=== PATIENT | male | born 1975 | race Caucasian/White ===

== ENCOUNTER → 2016-12-03 | Outpatient (CLI) | payer MEDICARE, MEDICAID ==
--- NOTE | 2016-12-03 18:19 | REP ---
CT FOOT WITHOUT CONTRAST: REASON FOR EXAM: Right foot pain. Assess for distal metatarsal fracture. Low dose [address] scanning of the right foot was obtained using 2 mm increments. There are no prior CT's for comparison. The examination was windowed using both bone and soft-tissue settings. Coronal and sagittal reconstructions were also performed. The joint spaces are symmetric and well maintained. There is no evidence of an acute fracture or destructive osseous lesion. The degree of mineralization appears appropriate. In the plantar soft-tissue at the ball of the foot two tiny 3 and 4 mm sized curvilinear densities are seen in the deep subcutanea. IMPRESSION: 1. There is no evidence of a fracture or osseous abnormality as described above. 2. Small soft-tissue radiodensity of uncertain etiology, whether these represent tiny soft-tissue calcifications or small soft-tissue foreign bodies, needs to be clinically evaluated. Signed by Ramos Mendoza DO 12/04/2016 11:15 A
== END ==
LOC: M RAD 15:39
PROVIDERS: ATTEND Student in an Organized Health Care Education/Training Program
DX: M79.671 Pain in right foot (principal); R93.7 Abnormal findings on diagnostic imaging of other parts of musculoskeletal system

== ENCOUNTER → 2017-05-18 | Outpatient (REF) | payer MEDICARE, MEDICAID ==
[2017-05-18 12:07] LABS: BASO % 0.6 % (0.0-1.0); EOS # 0.1 K/mm3 (0.0-0.50); EOS % 1.1 % (0.0-3.0); LARGE UNSTAINED CELL # 0.1 K/mm3 (0.0-0.4); LARGE UNSTAINED CELL % 1.9 % (0.0-4.0); LYMPH # 1.1 K/mm3 (1.5-4.5); LYMPH % 15.1 % (24.0-44.0); MEAN CORPUSCULAR HGB CONC 31.9 g/dl (32.0-36.5); MEAN CORPUSCULAR VOLUME 87.7 fl (80.0-96.0); MONO # 0.5 K/mm3 (0.0-0.8); MONO % 6.8 % (0.0-5.0); NEUTROPHILS % 74.5 % (36.0-66.0); PLATELET COUNT, AUTOMATED 229 k/mm3 (150-450); RED CELL DISTRIBUTION WIDTH 15.3 % (11.5-14.5); WHITE BLOOD COUNT 6.7 K/mm3 (4.0-10.0)
[2017-05-18 12:43] LABS: ALBUMIN 3.5 GM/DL (3.2-5.2); ALBUMIN/GLOBULIN RATIO 0.92 (1.00-1.93); ALKALINE PHOSPHATASE 223 U/L (45-117); ALT/SGPT 103 U/L (12-78); ANION GAP 12 MEQ/L (8-16); AST/SGOT 178 U/L (15-37); BILIRUBIN,TOTAL 0.9 MG/DL (0.2-1.0); BLOOD UREA NITROGEN 3 MG/DL (7-18); CALCIUM LEVEL 8.2 MG/DL (8.5-10.1); CARBON DIOXIDE LEVEL 25 MEQ/L (21-32); CHLORIDE LEVEL 105 MEQ/L (98-107); CREATININE FOR GFR 0.54 MG/DL (0.70-1.30); FREE T4 1.24 NG/DL (0.76-1.46); GLOMERULAR FILTRATION RATE > 60.0 (>60); GLUCOSE, FASTING 101 MG/DL (70-105); MAGNESIUM LEVEL 2.4 MG/DL (1.8-2.4); PHOSPHORUS LEVEL 4.2 MG/DL (2.5-4.9); POTASSIUM SERUM 4.1 MEQ/L (3.5-5.1); SODIUM LEVEL 142 MEQ/L (136-145); TOTAL PROTEIN 7.3 GM/DL (6.4-8.2)
[2017-05-20 00:06] LABS: Lyme Disease IgG/IgM Antibodie <0.91 ISR (0.00-0.90); Lyme Disease IgM Ab Quantitati <0.80 index (0.00-0.79)
== END ==
LOC: M SFHCPLAZ 09:58
PROVIDERS: ATTEND Family Medicine
DX: F20.1 Disorganized schizophrenia (principal); I10 Essential (primary) hypertension

== ENCOUNTER → 2018-05-24 | Outpatient (REF) | payer MEDICARE, MEDICAID ==
[2018-05-24 18:09] LABS: BASO # 0.1 10^3/uL (0.0-0.2); BASO % 0.7 % (0.0-1.0); EOS # 0.1 10^3/uL (0.0-0.50); EOS % 1.1 % (0.0-3.0); HEMATOCRIT 39.8 % (42.0-52.0); HEMOGLOBIN 13.3 g/dl (13.5-17.5); IMMATURE GRANULOCYTE % 0.2 % (0-3.0); LYMPH # 1.2 10^3/uL (1.5-4.5); LYMPH % 14.8 % (24.0-44.0); MEAN CORPUSCULAR HGB CONC 33.4 g/dl (32.0-36.5); MEAN CORPUSCULAR VOLUME 89.6 fl (80.0-96.0); MONO # 0.8 10^3/uL (0.0-0.8); MONO % 9.5 % (0.0-5.0); NEUTROPHILS # 6.1 10^3/uL (1.8-7.7); NEUTROPHILS % 73.7 % (36.0-66.0); PLATELET COUNT, AUTOMATED 215 10^3/uL (150-450); RED BLOOD COUNT 4.44 10^6/uL (4.30-6.10); RED CELL DISTRIBUTION WIDTH 16.2 % (11.5-14.5); RETIC HEMOGLOBIN EQUIVALENT 36.7 pg (24-36); RETICULOCYTE # 81.7 10^9/L (17-77); RETICULOCYTE % 1.8 % (0.5-1.5); WHITE BLOOD COUNT 8.3 10^3/uL (4.0-10.0)
[2018-05-24 18:34] LABS: ALBUMIN 3.3 GM/DL (3.2-5.2); ALBUMIN/GLOBULIN RATIO 0.77 (1.00-1.93); ALKALINE PHOSPHATASE 252 U/L (45-117); ALT/SGPT 102 U/L (12-78); ANION GAP 10 MEQ/L (8-16); AST/SGOT 191 U/L (7-37); BILIRUBIN,TOTAL 1.6 MG/DL (0.2-1.0); BLOOD UREA NITROGEN 2 MG/DL (7-18); C REACTIVE PROTEIN QUANTITATIV 0.89 MG/DL (0.00-0.30); CALCIUM LEVEL 8.8 MG/DL (8.5-10.1); CARBON DIOXIDE LEVEL 28 MEQ/L (21-32); CHLORIDE LEVEL 99 MEQ/L (98-107); CHOLESTEROL LEVEL 227 MG/DL (<200); CHOLESTEROL RISK RATIO 3.661 (<5); CREATININE FOR GFR 0.59 MG/DL (0.70-1.30); FERRITIN 66 NG/ML (26-388); GLOMERULAR FILTRATION RATE > 60.0 (>60); GLUCOSE, FASTING 95 MG/DL (70-100); HDL CHOLESTEROL 62 MG/DL (>40); IRON (FE) 35 UG/DL (65-175); LDL CHOLESTEROL 145.4 MG/DL (<100); NON-HDL-C 165 MG/DL; PERCENT SATURATION 10.2 % (19.7-50.0); POTASSIUM SERUM 3.8 MEQ/L (3.5-5.1); RHEUMATOID FACTOR QUANT < 10.0 IU/ML (<15.0); SODIUM LEVEL 137 MEQ/L (136-145); TOTAL IRON BINDING CAPACITY 342 UG/DL (250-450); TOTAL PROTEIN 7.6 GM/DL (6.4-8.2); TRIGLYCERIDES LEVEL 98 MG/DL (<150)
[2018-05-24 19:00] LABS: ERYTHROCYTE SEDIMENTATION RATE 18 mm/hr (0-15)
[2018-05-25 10:49] LABS: FOLATE 4.2 NG/ML (>5.4); VITAMIN B12 LEVEL 838 PG/ML (247-911)
[2018-05-26 09:15] LABS: HEPATITIS B SURFACE ANTIGEN NEGATIVE (NEGATIVE)
[2018-05-26 09:35] LABS: HEPATITIS B CORE ANTIBODY IGM NEGATIVE (NEGATIVE); HEPATITIS C VIRUS ABY INDEX 0.1 INDEX (<0.8)
[2018-05-26 09:37] LABS: HEPATITIS A ANTIBODY IGM NEGATIVE (NEGATIVE)
[2018-05-27 00:06] LABS: ANTINUCLEAR ANTIBODIES DIRECT Negative (Negative); Lyme Disease IgG/IgM Antibodie <0.91 ISR (0.00-0.90); Lyme Disease IgM Ab Quantitati <0.80 index (0.00-0.79); TRANSFERRIN 264 mg/dL (200-370)
[2018-05-27 00:06] LABS: CYCLIC CITRULLINATED PEPTIDE 9 units (0-19)
== END ==
LOC: M SFHCPLAZ 16:12
DX: M25.541 Pain in joints of right hand (principal); R74.8 Abnormal levels of other serum enzymes; Z13.220 Encounter for screening for lipoid disorders; D64.9 Anemia, unspecified; F10.10 Alcohol abuse, uncomplicated
CPT/HCPCS: 82746

== ENCOUNTER 2018-10-12 17:06 | Inpatient (IN) | payer MEDICARE, MEDICAID ==
[2018-10-12] VITALS (27 sets, daily range): BP systolic 84–150; BP diastolic 37–100
[~2018-10-12] VITALS: Ht 170.2 cm; Wt 123.6 kg
[2018-10-12] MEDS ORDERED: EPINEPHrine 1MG/10ML SYRINGE 1.5IN IV STA ×7 (17:15→17:53)
[2018-10-12] MEDS ORDERED: SUCCINYLCHOLINE INJ 200 MG/10 ML VIAL (J0330) IV STA (17:23)
[2018-10-12] MEDS ORDERED: SODIUM CHLORIDE 0.9% 1000ML IV ONE (17:28)
[2018-10-12] MEDS ORDERED: OCTREOTIDE ACETATE 100 MCG/ML VIAL (J2354) SC STA (17:44)
[2018-10-12] MEDS ORDERED: NS 1,000 ML IV ONE ×3 (17:45→21:30)
[2018-10-12] MEDS ORDERED: OCTREOTIDE ACETATE 1,200 MCG in NS 238.8 ML IV SCH ×2 (17:45→18:00)
[2018-10-12 18:13] LABS: HEMATOCRIT 22.1 % (42.0-52.0); MEAN CORPUSCULAR HEMOGLOBIN 28.3 pg (27.0-33.0); MEAN CORPUSCULAR HGB CONC 29.4 g/dl (32.0-36.5); MEAN CORPUSCULAR VOLUME 96.1 fl (80.0-96.0); PLATELET COUNT, AUTOMATED 183 10^3/uL (150-450); WHITE BLOOD COUNT 15.3 10^3/uL (4.0-10.0)
[2018-10-12 18:16] LABS: HEMOGLOBIN 6.5 g/dl (13.5-17.5)
[2018-10-12 18:26] LABS: INR 3.26
[2018-10-12 18:29] LABS: PARTIAL THROMBOPLASTIN TIME 82.3 SECONDS (25.4-37.6)
[2018-10-12 18:39] LABS: LYMPHOCYTES 13 % (16-52); METAMYELOCYTES 6 % (0-0); MONOCYTES 6 % (0-8); NEUTROPHILS 64 % (35-75); PLATELET ESTIMATE NORMAL (NORMAL)
[2018-10-12 18:40] LABS: HYPOCHROMASIA 2+; TOXIC GRANULATION 1+
[2018-10-12 18:41] LABS: POLYCHROMASIA 2+
[2018-10-12 18:46] LABS: ALBUMIN 1.5 GM/DL (3.2-5.2); ALT/SGPT 213 U/L (12-78); AMYLASE 59 U/L (25-115); BILIRUBIN,DIRECT 1.5 MG/DL (0.0-0.2); BILIRUBIN,TOTAL 2.1 MG/DL (0.2-1.0); BLOOD UREA NITROGEN 8 MG/DL (7-18); CALCIUM LEVEL 6.9 MG/DL (8.5-10.1); CARBON DIOXIDE LEVEL 10 MEQ/L (21-32); CHLORIDE LEVEL 91 MEQ/L (98-107); CPK CREATINE PHOSPHOKINASE 319 U/L (39-308); CREATININE FOR GFR 1.37 MG/DL (0.70-1.30); GLOMERULAR FILTRATION RATE > 60.0 (>60); GLUCOSE, FASTING 63 MG/DL (70-100); LIPASE 593 U/L (73-393); MB/CK RELATIVE INDEX 1.38 (< OR =4); POTASSIUM SERUM 6.8 MEQ/L (3.5-5.1); SODIUM LEVEL 124 MEQ/L (136-145); TOTAL PROTEIN 4.1 GM/DL (6.4-8.2); TROPONIN I 0.04 NG/ML (< 0.10)
--- NOTE | 2018-10-12 18:48 | REP ---
Chest one-view HISTORY: Tube placement Comparison: 12/30/2013 The lungs are clear. The heart is normal in size. The pulmonary vasculature is normal in appearance. An ET tube NG tube and central line are present. An ET tube is present just proximal to the genevieve. An NG tube is present in the region of the mid esophagus. Impression: 1. No acute disease. 2. An ET tube is present just proximal to the genevieve. 3. An NG tube is present in the region of the mid esophagus. Electronically Signed by Ba Win MD 10/12/2018 06:40 P
[2018-10-12] MEDS ORDERED: PROPOFOL 1,000 MG/100 ML VIAL As Ordered ONE (19:08)
[2018-10-12] MEDS ORDERED: PROPOFOL 1,000 MG in APPROPRIATE DILUENT 1 EA IV SCH (19:18)
[2018-10-12] MEDS ORDERED: CALCIUM GLUCONATE 1,000 MG in D5W MINI-BAG PLUS 100 ML IV ONE (19:30)
[2018-10-12] MEDS ORDERED: PANTOPRAZOLE SODIUM 40 MG in D5W 50 ML IV SCH (19:30)
[2018-10-12] MEDS ORDERED: cefTRIAXone SOD 1 GM in D5W MINI-BAG PLUS 50 ML IV ONE (19:30)
[2018-10-12] MEDS ORDERED: MORPHINE 4 MG/ML 1ML VIAL/SYRINGE (J2270) IV PRN (19:30)
[2018-10-12 19:56] LABS: SPEC. GRAVITY BODY FLUIDS 1.011 (NOT ESTABLISHED)
[2018-10-12 19:59] LABS: ABG BASE EXCESS -25.3 (-2.0-2.0); ABG HCO3 7.6 MEQ/L (22.0-26.0); ABG O2 SATURATION 93.7 % (95.0-99.0); ABG PARTIAL PRESSURE CO2 41.8 mmHg (35.0-45.0); ABG PARTIAL PRESSURE O2 97.6 mmHg (75.0-100.0); ABG STANDARD HCO3 6.8 MEQ/L (22.0-26.0); ABG TOTAL CO2 8.8 MEQ/L (22.0-29.0)
[2018-10-12] MEDS ORDERED: IPRATROPIUM 0.5MG/ALBUTEROL 2.5MG INH SOL UD 3ML (DUONEB)(J7620) NEB SCH (20:00)
[2018-10-12 20:02] LABS: HEMATOCRIT 36.2 % (42.0-52.0)
[2018-10-12 20:03] LABS: ABG pH (ARTERIAL) 6.875 UNITS (7.350-7.450)
[2018-10-12 20:06] LABS: HEMOGLOBIN 11.1 g/dl (13.5-17.5)
[2018-10-12] MEDS ORDERED: SODIUM BICARBONATE 8.4% INJ 50 ML SYRINGE IV STA ×2 (20:07→21:43)
[2018-10-12 20:08] LABS: APPEARANCE, BODY FLUID CLEAR (CLEAR); PERITONEAL FL COLOR YELLOW (COLORLESS); SOURCE, BODY FLUID PERITONEAL
[2018-10-12] MEDS ORDERED: SODIUM BICARBONATE 8.4% INJ 50 ML SYRINGE As Ordered ONE (20:08)
[2018-10-12 20:12] LABS: SOURCE, BODY FLUID GLUCOSE PERITONEAL; SOURCE, BODY FLUID TOT PROTEIN PERITONEAL
[2018-10-12 20:29] LABS: ALBUMIN 1.9 GM/DL (3.2-5.2); ALT/SGPT 407 U/L (12-78); BILIRUBIN,TOTAL 2.6 MG/DL (0.2-1.0); BLOOD UREA NITROGEN 9 MG/DL (7-18); CARBON DIOXIDE LEVEL 11 MEQ/L (21-32); CHLORIDE LEVEL 89 MEQ/L (98-107); CHOLESTEROL LEVEL 115 MG/DL (< 200); CPK CREATINE PHOSPHOKINASE 537 U/L (39-308); CREATININE FOR GFR 1.37 MG/DL (0.70-1.30); GLOMERULAR FILTRATION RATE > 60.0 (>60); GLUCOSE, FASTING 81 MG/DL (70-100); LDH LACTATE DEHYDROGENASE 2015 U/L (87-241); PHOSPHORUS LEVEL 8.8 MG/DL (2.5-4.9); POTASSIUM SERUM 7.8 MEQ/L (3.5-5.1); SODIUM LEVEL 120 MEQ/L (136-145); TRIGLYCERIDES LEVEL 154 MG/DL (<150)
[2018-10-12] MEDS ORDERED: HumuLIN R (REGULAR) INSULIN (NovoLIN R) **100U/ML** PER UNIT As Ordered ONE (20:31)
[2018-10-12] MEDS ORDERED: DEXTROSE 50% 50 ML SYRINGE As Ordered ONE (20:31)
[2018-10-12] MEDS ORDERED: DEXTROSE 50% 50 ML SYRINGE IV STA (20:34)
[2018-10-12] MEDS ORDERED: HumuLIN R (REGULAR) INSULIN (NovoLIN R) **100U/ML** PER UNIT IV STA (20:36)
--- NOTE | 2018-10-12 20:40 | HPE ---
DATE OF ADMISSION: 10/12/2018 Critical care time was 2 hours. This excludes all procedures. Mr. Santos is a 43-year-old male whom I was called emergently to the emergency room to help at bedside. Apparently, he presented with variceal bleeding. He was intubated. Continued to have variceal bleeding. On my arrival, his abdomen was significantly distended. I placed a central line. He already had two large- bore intravenous (IVs), and I performed a bedside paracentesis in order to decompress the abdomen and showed clear yellow fluid. I drained a liter off at a time, monitoring his blood pressure over a 45-minute period, and drained a total of 5300 mL. His bleeding seemed to decrease. He was transferred up to the intensive care unit (ICU) to facilitate upper endoscopy. He had received as part of my bedside management along with the emergency room (ER) bedside management 6 units packed red blood cells, 2 units of fresh frozen plasma (FFP). He was getting rapid transfusion protocol. Platelets were not available at that point in time. Apparently, according to the mother, who states she is his healthcare proxy, he has severe schizophrenia with both visual and auditory hallucinations. He therefore drinks on a daily basis along with taking antipsychotic medications; therefore, the thought is that there is cirrhosis secondary to alcoholic liver disease; however, the patient never had a biopsy. He was being urged by his primary care physician to see a gastrointestinal (GI) physician; however he never went for an appointment. His mother would clean the bathroom and know that he had been vomiting and having diarrhea, feeling as if there might have been blood in the vomit or stool. No other medical history is available other than what is obtained in the chart. PAST MEDICAL HISTORY: 1. Reflux. 2. Hypertension. 3. Schizophrenia. 4. Schizoaffective disorder. 5. Obsessive-compulsive disorder (OCD). 6. Posttraumatic stress disorder (PTSD). 7. Hypertension. 8. Insomnia. 9. Hyperlipidemia. 10. Tobacco abuse. 11. Alcohol abuse. 12. Inguinal hernia repair. ALLERGIES: No drug allergies. The medication list I have from June shows: - multivitamin - vitamin B complex - Ambien - Cogentin - Celexa at 60 mg daily - potassium 75 mg by mouth daily - Ritalin 20 mg by mouth daily - EpiPen as needed for bee stings - omeprazole 40 mg daily - Haldol 5 mg by mouth daily - Abilify 20 mg by mouth daily - hydroxyzine 25 mg by mouth daily - doxepin 10 mg by mouth daily - Rozerem 8 mg by mouth daily - fluticasone nasal spray - Claritin as needed SOCIAL HISTORY: Unobtainable. FAMILY HISTORY: Unobtainable. REVIEW OF SYSTEMS: Unobtainable. PHYSICAL EXAMINATION: The patient is sedated on mechanical ventilation on my arrival to the room. He is covered in a blood clots. Bed is covered in blood, and floor is covered in blood clots. Endotracheal tube is present. Temperature is 97.6, blood pressure 113/56, pulse is 97, oxygen saturation 93% on 100% FiO2, positive end-expiratory pressure (PEEP) of 12 with a respiratory rate is 20. GENERAL, the patient is sedated on mechanical ventilation. Prior to sedation but after intubation with rapid sequence, the patient's pupils were dilated but reactive to light, approximate measurement of 6-7 mm. They were symmetric. Nares bilaterally full blood. Nasogastric (NG) tube in one naris. Mouth, again, full of blood. Tongue is midline. No evidence of trauma to the tongue. Teeth in good repair. Endotracheal tube filled with blood. Neck supple. No tracheal deviation or mass. Right internal jugular (IJ) in place without surrounding erythema or exudate. Lymph: No cervical, supraclavicular, or axillary adenopathy. CARDIAC: Distant S1, S2 without audible murmur, rub, or gallop. Difficult to palpate point of maximal impulse (PMI) based on body habitus. PULMONARY: Decreased breath sounds at the bases. No rales, rhonchi, or wheezes. No accessory muscle use. The patient is generating his own efforts as far as breathing. ABDOMEN: Significantly distended, dull to percussion, the majority of the flank. Hypoactive bowel sounds. Hepatomegaly was not palpable due to the severity of the distension of the abdomen. EXTREMITIES: Significant edema, pitting to the level of the thigh. No cyanosis. No clubbing. Minimal jaundice. Multiple tattoos. MUSCULOSKELETAL: No joint effusion, rash. LABORATORY EVALUATION: Shows an elevated white count of 15.3, hemoglobin of 16.5, hematocrit of 22.1, platelet count of 183. Total bilirubin of 2.1, direct bilirubin of 1.5, AST of 849, ALT of 213, CK of 319, albumin of 1.5. Sodium is 124, potassium 6.8, chloride of 91, bicarbonate 10, BUN of 8, creatinine of 1.37. Chest x-ray shows that the endotracheal tube is slightly deep. Poor chest expansion with cardiomegaly, even though this is an anterior-posterior (AP) film. No other imaging has been performed other than my bedside ultrasound imaging. There is extensive amount of ascites on bedside ultrasound. IMPRESSION: 1. Variceal bleed with hematemesis. The patient had pulseless electrical activity (PEA) arrest from the severity of the bleeding. Will continue to support the patient rapid transfusion protocol. Gastrointestinal (GI) has been consulted for banding of varices now that the patient has maintained a blood pressure and pulse. He has been started on an octreotide drip, Protonix drip, and I placed him on ceftriaxone, especially after the peritoneal drainage. 2. Severe anemia secondary to #1. Will continue to closely monitor for the need for further transfusion. 3. Severe lactic acidosis from hemorrhagic shock. 4. Cirrhosis from alcoholic liver disease, most likely; however, the patient has not had liver biopsy. Will obtain hepatitis panel. There was an exposure to blood in the emergency room; therefore will obtain hepatitis and HIV panels. 5. Hypoxia. The patient may require frequent suctioning, as there was quite a bit of blood on his first bronchoscopy. Will continue to monitor for signs, symptoms of pneumonia. High PEEP due to the abdominal pressure. 6. Renal failure. Currently does not have any urine output. Will continue hydration and transfusion until the patient has significant urine output. Current creatinine is only 1.37; however, that was just adjacent to the onset of his arrest. 7. Schizophrenia with history of requiring antipsychotic medication. This will need to be kept in mind while the patient is on mechanical ventilation. Efforts toward treatment of antipsychotic behavior preventing delirium are necessary. He may require Precedex in order to be able to wean from mechanical ventilation. The patient remains critically ill with a high risk of . Will remain in the intensive care unit (ICU), every 4 monitoring of electrolytes and hemoglobin and hematocrit. I would not be surprised if the patient requires dialysis in the future. MTDD
--- NOTE | 2018-10-12 20:43 | RO ---
DATE OF PROCEDURE: 10/12/2018 PREPROCEDURE DIAGNOSIS: Hypoxia with recent hematemesis, deemed urgent, therefore, consent was not obtained. POSTPROCEDURE DIAGNOSIS: Hypoxia with recent hematemesis, deemed urgent, therefore, consent was not obtained. PROCEDURE: Bronchoscopy. SURGEON: Dr. Tj Mesa PLANT WRAPPER: None ANESTHESIA: The patient was on sedation for the procedure. Patient mechanically ventilated. DESCRIPTION OF PROCEDURE: Bronchoscope was introduced into the endotracheal tube with Cetacaine spray. All airways were suctioned. There was large amounts of blood but no clots, predominantly in the lower lobes. All airways were flushed with saline. All blood was removed of the central airways. After adequate removal, there was no return of blood. Bronchoscope was removed. The patient was placed back on mechanical ventilation with an oxygen saturation above 90%. No observed complications. [facility]
--- NOTE | 2018-10-12 20:49 | RO ---
DATE OF PROCEDURE: 10/12/2018 PREPROCEDURE DIAGNOSIS: POSTPROCEDURE DIAGNOSIS: PROCEDURE: Paracentesis. SURGEON: Dr. Tj Mesa ORGAN INSTALLER: None ANESTHESIA: sedated on mechanical ventilation This was done urgently as the patient was having massive hematemesis, severely distended abdomen, and needed decompression of the abdomen versus DPL. DESCRIPTION OF PROCEDURE: The right lower quadrant was prepped and draped in a sterile manner. I used ultrasound to view the largest fluid collection. Needle was placed through the abdominal wall into the largest fluid collection with return of yellow fluid. Yellow clear fluid returned; therefore, a jalyn in the skin was made and a catheter was placed for drainage. Over a period of over 45 minutes to an hour, a total of 5300 mL of peritoneal fluid was removed. There were no observed complications. The tube remains as over the next 12 hours will likely be draining more fluid from the abdomen as blood pressure tolerates. However, his clinical status is tenuous; therefore, did not want to drain all of the fluid at one time. GENNY
[2018-10-12] MEDS ORDERED: CHLORHEXIDINE GLUCONATE 0.12 % 15ML UDC (PERIDEX ORAL RINSE) MT SCH (21:00)
[2018-10-12] MEDS ORDERED: NOREPINEPHRINE BITARTRATE 8 MG in D5W 492 ML IV SCH (21:00)
--- NOTE | 2018-10-12 21:58 | CCN ---
DATE: 10/12/2018 This is an additional hour to the note that is already dictated from 10/12/2018. The patient's hemoglobin has gone up; however, the patient is hyperkalemic. He has been given insulin, D50, and calcium. The patient is likely hyperkalemic from the severity of the acidemia. The pH is only 6.8. Bicarbonate was given. There has been no urine output. This patient's oxygen saturation continues to worsen despite bronchoscopy for removal of bloody secretions. An upper endoscopy was performed, which did not appear to be any significant varices, but there was a possible Britney Webb tear. If patient survives, upper endoscopy again will be performed tomorrow. The patient remains critically ill with multiple organ dysfunction, high risk of , constantly at bedside to prevent side effects from hyperkalemia, hypotension. GENNY
--- NOTE | 2018-10-12 22:01 | RO ---
DATE OF PROCEDURE: 10/12/2018 PREPROCEDURE DIAGNOSIS: Hypoxic respiratory failure. POSTPROCEDURE DIAGNOSIS: Hypoxic respiratory failure. PROCEDURE: Endotracheal intubation. SURGEON: Dr. Tj Mesa EMERGENCY DEPARTMENT COORDINATOR: none ANESTHESIA: sedated on mechanical ventilation DESCRIPTION OF PROCEDURE: The patient's endotracheal tube had a cuff leak that is audible from the door, and the patient was having significant oxygen desaturations; therefore, tube exchange over exchanger was performed. The tube exchanger was advanced to 25 cm. The endotracheal tube cuff was deflated and endotracheal tube removed. Tube was advanced into the airway and tube exchanger removed and endotracheal tube was secured at 25 cm at the lip. Cuff was inflated, auscultation was present bilaterally. No evidence of complications. The patient, however, remains hypoxic, has a large amounts of blood and secretions from the airway. The patient was returned to mechanical ventilation. [facility]
[2018-10-12 22:42] LABS: ABG BASE EXCESS -26.7 (-2.0-2.0)
[2018-10-12 22:43] LABS: ABG HCO3 7.1 MEQ/L (22.0-26.0); ABG PARTIAL PRESSURE CO2 44.7 mmHg (35.0-45.0); ABG PARTIAL PRESSURE O2 79.5 mmHg (75.0-100.0); ABG STANDARD HCO3 5.9 MEQ/L (22.0-26.0); ABG TOTAL CO2 8.5 MEQ/L (22.0-29.0)
[2018-10-12 22:44] LABS: ABG pH (ARTERIAL) 6.819 UNITS (7.350-7.450)
[2018-10-12 22:48] LABS: HEMATOCRIT 34.3 % (42.0-52.0); HEMOGLOBIN 10.3 g/dl (13.5-17.5)
[2018-10-12] MEDS ORDERED: SODIUM BICARBONATE 75 MEQ in NS 0.45% 1,000 ML IV SCH (23:00)
[2018-10-12 23:03] LABS: INR 3.67; PROTHROMBIN TIME 37.3 SECONDS (12.1-14.4)
[2018-10-12 23:11] LABS: SOURCE, BODY FLUID ALBUMIN PERITONEAL
--- NOTE | 2018-10-12 23:23 | RO ---
DATE OF PROCEDURE: 10/12/2018 PREPROCEDURE DIAGNOSIS: Hypotension. POSTPROCEDURE DIAGNOSIS: Hypotension. PROCEDURE: Right triple lumen central venous catheter. PROCEDURIST: Tj Mesa DO BUILDING PRESSURE WASHER: none CONSENT: Verbal consent obtained from his mother to do all things to save his life. It was deemed urgent in the emergency room. Therefore no written consent was obtained. DESCRIPTION OF PROCEDURE Time-out was performed with two patient identifiers identifying correct site, correct procedure. Right IJ was prepped and draped in a sterile manner with chlorhexidine. Full barrier precautions. Right IJ was then identified under ultrasound. A [place] syringe was introduced with return of blood flow on the first pass. Wire was fed through the needle and the triple-lumen catheter was placed via modified Seldinger technique. All three ports returned venous blood flow and flushed easily. This was sutured in at 15 cm. Postprocedure chest x-ray shows adequate placement. A sterile impregnated dressing was placed over the site. There were no observed complications. GENNY
[2018-10-12 23:39] LABS: ALBUMIN 1.6 GM/DL (3.2-5.2); BILIRUBIN,TOTAL 2.3 MG/DL (0.2-1.0); CALCIUM LEVEL 6.6 MG/DL (8.5-10.1); CREATININE FOR GFR 1.46 MG/DL (0.70-1.30); GLOMERULAR FILTRATION RATE 56.6 (>60); PHOSPHORUS LEVEL 8.4 MG/DL (2.5-4.9); POTASSIUM SERUM 6.9 MEQ/L (3.5-5.1)
[2018-10-13] VITALS (8 sets, daily range): BP systolic 35–83; BP diastolic 23–45
[2018-10-13] MEDS ORDERED: MIDAZOLAM INJ 2 MG/2 ML VIAL (J2250) IV PRN
[2018-10-13] MEDS ORDERED: VASOPRESSIN INJ 20 UNITS in NS 500 ML IV SCH ×2
[2018-10-13] MEDS ORDERED: VASOPRESSIN INJ 20 UNITS/ML VIAL As Ordered ONE (00:02)
[2018-10-13 01:23] LABS: HEMATOCRIT 33.6 % (42.0-52.0); HEMOGLOBIN 10.3 g/dl (13.5-17.5)
[2018-10-13 01:23] LABS: INR 4.32; PROTHROMBIN TIME 42.5 SECONDS (12.1-14.4)
[2018-10-13 01:33] LABS: HEMOGLOBIN 10.2 g/dl (13.5-17.5); MEAN CORPUSCULAR HEMOGLOBIN 29.5 pg (27.0-33.0); MEAN CORPUSCULAR VOLUME 98.3 fl (80.0-96.0); PLATELET COUNT, AUTOMATED 128 10^3/uL (150-450); RED BLOOD COUNT 3.46 10^6/uL (4.30-6.10); WHITE BLOOD COUNT 4.7 10^3/uL (4.0-10.0)
[2018-10-13 01:42] LABS: INR 4.62; PROTHROMBIN TIME 44.8 SECONDS (12.1-14.4)
[2018-10-13 01:44] LABS: PARTIAL THROMBOPLASTIN TIME 112.2 SECONDS (25.4-37.6)
[2018-10-13 01:52] LABS: CALCIUM LEVEL 6.6 MG/DL (8.5-10.1); CREATININE FOR GFR 1.69 MG/DL (0.70-1.30); GLOMERULAR FILTRATION RATE 47.8 (>60); MAGNESIUM LEVEL 2.2 MG/DL (1.8-2.4); POTASSIUM SERUM 6.7 MEQ/L (3.5-5.1)
[2018-10-13 02:37] LABS: ALBUMIN 1.5 GM/DL (3.2-5.2); BILIRUBIN,TOTAL 2.4 MG/DL (0.2-1.0); CALCIUM LEVEL 6.6 MG/DL (8.5-10.1); CREATININE FOR GFR 1.66 MG/DL (0.70-1.30); GLOMERULAR FILTRATION RATE 48.8 (>60); PHOSPHORUS LEVEL 8.8 MG/DL (2.5-4.9); POTASSIUM SERUM 6.7 MEQ/L (3.5-5.1); TOTAL PROTEIN 3.8 GM/DL (6.4-8.2)
--- NOTE | 2018-10-13 02:45 | CCN ---
DATE OF SERVICE: 10/13/2018 CRITICAL CARE TIME: 44 minutes. At the patient's bedside the patient remains severely acidemic. As a last ditch effort bicarbonate drip was administered. Continuous renal replacement therapy (CRRT) was initiated to try and get rid of acidemia. Lactic acid continues to increase. This is some question of whether or not there is bowel ischemia. I am not able to move the patient as he is too unstable to for any imaging. MAX cart was called; however, at my arrival to the Max cart, the patient's family wanted no more cardiopulmonary resuscitation. However, the patient still has a thready pulse, very low blood pressure and poor perfusion at this point in time he remains alive but I believe he will likely pass within the next half an hour to 1 hour. The patient's family updated at bedside. They do not want any further CPR. The patient remains hyperkalemic which is a whole other reason to perform dialysis. This patient also started having myoclonus. No mio seizure activity but occasional myoclonic jerking. OVERALL PROGNOSIS: Extremely guarded, expecting within the next hour. [facility]
--- NOTE | 2018-10-13 06:13 | RO ---
DATE OF PROCEDURE: 10/12/2018 PREOPERATIVE DIAGNOSIS: Shock. POSTOPERATIVE DIAGNOSIS: Shock. PROCEDURE: Left radial arterial line. SURGEON: Dr. Tj Mesa AUTOMOBILE ASSEMBLY SUPERVISOR: None ANESTHESIA: Patient on sedation. DESCRIPTION OF PROCEDURE: The left arm was prepped and draped in a sterile manner with chlorhexidine full dressing. The left radial artery previously tested with Jose's test was eventually entered with return of pulsatile flow with the assistance of ultrasound. A wire was fed through the needle and the needle was removed. The catheter was placed via modified Seldinger technique. Return of pulsatile, but slow pulsatile blood. This was hooked up to monitoring and showed very low pulsatile form. This was sutured in place. A sterile impregnated dressing was applied over the site. GENNY
--- NOTE | 2018-10-13 06:47 | RO ---
DATE OF PROCEDURE: 10/12/2018 PREOPERATIVE DIAGNOSIS: Severe metabolic acidosis, hyperkalemia. POSTOPERATIVE DIAGNOSIS: Severe metabolic acidosis, hyperkalemia. PROCEDURE: Left dialysis catheter. SURGEON: Dr. Tj Mesa LEGAL FILE CLERK:None ANESTHESIA: sedated on mechanical ventilation CONSENT: Given verbally by mother. DESCRIPTION OF PROCEDURE: The left groin was prepped and draped with a sterile manner with chlorhexidine and sterile barrier precautions. The left femoral vein was identified under ultrasound. A [place] syringe was passed into the femoral vein on the first pass. A guide wire was fed through the needle. The needle was removed and a jalyn in the skin was made. The skin was dilated and a femoral dialysis catheter was placed via modified Seldinger technique. There were no observed complications. Both ports returned venous blood flow and flushed easily. This was sutured in place. There were no observed complications. MTDD
--- NOTE | 2018-10-13 09:17 | REP ---
Portable chest x-ray: Single view. 9:21 p.m. film. History: Endotracheal tube exchange. Comparison radiograph is from 6:15 p.m. on the same date. Findings: There is a new large dense alveolar opacity in the right lung consistent with pulmonary hemorrhage or aspiration pneumonia. It was not present on the film done 3 hours earlier. Endotracheal tube is again seen in good position at the level of the transverse aorta. A right IJ line terminates in the superior vena cava position. There is increased density behind the heart in the left lower lobe as well. Nasogastric tube has been withdrawn. Impression: New large dense infiltrate right perihilar region. Atelectasis versus infiltrate left lower lobe. Electronically Signed by Dev Cooper MD 10/13/2018 09:35 A
[2018-10-13 11:09] LABS: HEPATITIS A ANTIBODY IGM NEGATIVE (NEGATIVE); HEPATITIS B CORE ANTIBODY IGM NEGATIVE (NEGATIVE); HEPATITIS B SURFACE ANTIGEN NEGATIVE (NEGATIVE); HEPATITIS C VIRUS ABY INDEX 0.1 INDEX (<0.8)
--- NOTE | 2018-10-13 11:54 | DSES ---
DATE OF ADMISSION: 10/12/2018 DATE OF DISCHARGE: 10/13/2018 HOSPITAL COURSE: The patient was presented to the emergency room, had a pulseless electrical activity (PEA) arrest with hematemesis. After approximately 15 minutes of cardiopulmonary resuscitation (CPR) and epinephrine, the patient had return of pulse and blood pressure. I was called urgently to the emergency room and found the patient to be unconscious despite no additional sedation. Endotracheal tube in place. Large amounts of blood surrounding the patient. Two large-bore IVs placed in the antecubital areas. The patient was already being transfused blood. I placed a central line in case vasopressor therapy was required. The most striking abnormality was the tense ascites of his abdomen. It was thought that this may be increasing pressure causing increased variceal bleeding and possible abdominal compartment syndrome. Also, diagnostic peritoneal lavage was being considered. I therefore did a paracentesis was return of yellow fluid. Total during his hospitalization, 8 liters of abdominal peritoneal fluid was removed. Although his abdomen remained distended and still quite a bit of fluid remaining, the abdomen became less tense. The patient had no significant recovery and continued to go downhill with persistent lactic acidosis, unable to clear his acidemia, bicarbonate was used in order to attempt improving acid base balance. The patient had a persistent shock. Levophed, vasopressin was added. Giapreza requested but not available. The patient was also hyperkalemic likely due to a combination of severe acidemia and blood transfusions. Calcium, insulin, D50 and eventually attempts towards CRRT. This was instituted as a last ditch effort as the patient continued to have persistent hypoperfusion, persistent lactic acidosis. Sepsis was considered in the differential despite the initial thought of hemorrhagic shock. Ceftriaxone was used as the most likely source was the abdomen. This was given immediately during his intensive care unit (ICU) admission. Eventually, the patient had a second arrest, had a brief return of pulse and blood pressure. The patient's family asked to stop CPR. The patient then shortly after. DISCHARGE DIAGNOSES: 1. Acute on chronic liver failure. 2. Hematemesis likely from Britney Webb tear. 3. Shock with persistent lactic acidosis. 4. PEA arrest. 5. Possible spontaneous bacterial peritonitis with severe tense ascites, possible abdominal compartment syndrome. 6. Severe hyperkalemia. 7. Severe hypoxia, respiratory failure. 8. Coagulopathy secondary to #1. 9. Alcohol abuse. 10. History of schizophrenia. 11. Renal failure. No urine output. 12. Myoclonus. 13. Multiorgan system failure. The patient's family was at bedside at the time of expiration. They requested that no autopsy be performed. Body was then transferred to [facility] [place]. [facility]
[2018-10-13] MEDS ORDERED: cefTRIAXone SOD 1 GM in D5W MINI-BAG PLUS 50 ML IV SCH (21:00)
--- NOTE | 2018-10-13 21:00 | CR ---
DATE OF CONSULTATION: 10/12/2018 This is a 43-year-old white male who I was called about from the emergency room for acute hematemesis. The patient has an apparent history of daily alcohol abuse and the possibility of cirrhosis of liver has been previously entertained. He apparently had an upper endoscopy several years ago with no apparent varices found. The patient was complaining of increasing shortness of breath and apparently was found to have severe abdominal distension secondary to ascites. He was brought to the emergency room and apparently had sudden onset of massive hematemesis. According to the patient's family he apparently has been having multiple issues of diarrhea and vomiting. He had sudden onset of bright red blood hematemesis. He was hypertensive in the emergency room. Was resuscitated and intubated. PAST MEDICAL HISTORY: The patient has a past medical history of schizophrenia, schizoaffective disorder, an has auditory and visual hallucinations. He has not ever been seen by gastroenterology (GI). PAST MEDICAL HISTORY: Past medical history for: 1. Reflux. 2. Hypertension. 3. Schizophrenia. 4. Possible schizoaffective disorder. 5. Obsessive compulsive disorder (OCD). 6. Post-traumatic disorder. 7. Hypertension. 8. Insomnia. 9. Hyperlipidemia. 10. Cigarette and alcohol abuse. ALLERGIES: No apparent allergies. MEDICATIONS: Medications include: - multivitamins - Ambien apparently - Cogentin - Celexa - Ritalin - omeprazole - Haldol - Abilify SOCIAL HISTORY: Unknown. FAMILY HISTORY: Unknown. REVIEW OF SYSTEMS: Unclear. PHYSICAL EXAMINATION: The patient was seen at the bedside and has been intubated with obvious blood coming from his mouth. Chest was clear to auscultation. Cardiovascular exam showed a regular rhythm. No murmurs or gallops. Normal physiological split S1, S2. Abdomen: Soft, globose, nontender. The patient had a paracentesis drain in there and the abdomen was slowly draining. The patient had been seen by GI for an emergency upper endoscopy to exclude and/or possibly treat the possibility of varices due to his longstanding history of alcohol abuse. LABORATORY STUDIES: Laboratory studies on admission showed calcium was 6.8 on admission. The patient's total bilirubin was 2.1 and then repeat was 2.6. AST was 8.89 and now it is 1771. ALT was 213 and now it is 300, now it is 407. Alkaline phosphatase 301. Lactate dehydrogenase (LDH) was 2015. Creatine phosphokinase (CPK) was 537. Albumin is 1.9. The patient's lipase was 593. The patient's hemoglobin on admission was 6.5 and 22.1. The patient has been given 8 units of packed cells and now it is 10.3 and 34.3. INR has been a problem at 3.26 and now it is 3.67. ANALYSIS: Upper GI bleed possibly secondary to varices. The plan will be to set the patient up for an upper endoscopy immediately and consider the possibility of banding the patient for varices and/or rule out peptic ulcer disease or a possibility of a Britney Webb tear due to his bouts of vomiting. PLAN: 1. Transfuse as needed. 2. Maintain the patient's intubation. 3. Esophagogastroduodenoscopy (EGD) as soon as possible.
--- NOTE | 2018-10-14 10:19 | ROOR ---
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 Procedure: Pre-Anesthesia Assessment: - The heart rate, respiratory rate, oxygen saturations, blood pressure, adequacy of pulmonary ventilation, and response to care were monitored throughout the procedure. The Endoscope was introduced through the mouth, and advanced to the second part of duodenum. The upper GI endoscopy was accomplished without difficulty. The patient tolerated the procedure well. Findings: The Z-line was regular and was found 40 cm from the incisors. A medium bleeding Britney-Webb tear with stigmata of recent bleeding was found. Red blood was found in the entire examined stomach. The exam of the duodenum was otherwise normal. Impression: - Z-line regular, 40 cm from the incisors. - Britney-Webb tear. - Red blood in the entire stomach. - No specimens collected. - The examination was otherwise normal. Recommendation: - The findings and recommendations were discussed with the patient's family. Kevin Irving MD Kevin Irving MD 10/13/2018 12:55:40 PM This report has been signed electronically. Number of Addenda: 0 Note Initiated On: 10/12/2018 8:09 PM Estimated Blood Loss: Estimated blood loss: none.
--- NOTE | 2018-10-14 15:19 | CR ---
DATE OF CONSULTATION: 10/13/2018 NEPHROLOGY CONSULTATION FOR: Tj Mesa DO REASON FOR CONSULTATION: For possible continuous renal replacement therapies (CRRT) in this gentleman with severe metabolic acidosis and hypotension following massive gastrointestinal (GI) bleed. HISTORY OF PRESENT ILLNESS: Mr. Santos is a 43-year-old gentleman who is seen in intensive care unit. Apparently, he presented to emergency room with upper GI bleed. He was vomiting. He had received about 6 units of packed red blood cells (RBCs). He has been resuscitated and intubated. Has no urine output. His pH is 6.8, and bicarbonate is only 5. Urgent nephrology consultation was requested for possible CRRT in order to help with his metabolic acidosis and acute renal failure. Patient is not able to provide any information at this point as he is unresponsive. PAST MEDICAL AND SURGICAL HISTORY: Significant for: 1. History of hypertension. 2. Schizophrenia. 3. Schizoaffective disorder. 4. Obsessive-compulsive disorder. 5. Posttraumatic stress disorder. 6. Insomnia. 7. Hyperlipidemia. 8. History of chronic alcohol use. 9. Inguinal hernia repair. MEDICATIONS: His home medications include: - multivitamin - Ambien - Cogentin - Celexa - potassium - Ritalin - omeprazole - Haldol - Abilify - hydroxyzine - doxepin - Rozerem - Claritin - fluticasone PERSONAL AND SOCIAL HISTORY: Not available at present. Apparently, patient has history of heavy alcohol use according to his records. FAMILY HISTORY: Noncontributory and unobtainable. REVIEW OF SYSTEMS: Patient is intubated and unresponsive. He is not able to provide any information. PHYSICAL EXAMINATION: This is a young gentleman who is intubated and has a nasogastric tube in place. He is unresponsive at present. He has marked abdominal distention with ascites. A Park catheter is in place and bag is empty, while another bag has ascitic fluid drained in it. His temperature is 94.8 degrees Fahrenheit, heart rate about 100 per minute, and respiratory rate on the ventilator is 22 per minute. Blood pressure is only 84/40 mmHg, and he is on three pressors. There is some old blood on his nares and face. Head is atraumatic. Neck veins are difficult to be assessed. Heart sounds are somewhat tachycardic, and lungs have good bilateral air entry. Abdomen is markedly distended with ascites, and bowel sounds are present. Extremities have no cyanosis or clubbing at present. He does have peripheral edema on his lower extremities. Neurologically, he is unresponsive. LAB DATA: On admission, his hemoglobin was 6.5 and hematocrit 22. WBC count was 15.3. After transfusion, his hemoglobin is up to 10.3 and hematocrit 34.3. His initial blood gas showed a pH of 6.87, pCO2 of 41.8, and pO2 of 97.6. Bicarbonate 6.8. A repeat blood gas showed a pH of 6.81, pCO2 of 44.7, and pO2 of 79.5. Bicarbonate is 5.9. Sodium 120, potassium 7.8, CO2 of 11, BUN 9, and creatinine 1.37. A repeat sodium is 123, potassium 6.9, CO2 of 10, BUN 8, and creatinine 1.46. His lactic acid level is 16.3. His LFTs are also markedly elevated with AST 2025, ALT 456, alkaline phosphatase 249, and LDH 2289. Total protein is 4.0 and albumin 1.6. PROBLEMS: 1. Acute renal failure. Most likely, this is hypovolemic and hypotensive acute renal failure related to shock. Patient has no urine output at present. He is very hypotensive and on three pressors, so dialysis is very much unlikely to be tolerated. We will try CRRT and see if he can tolerate it. His prognosis remains extremely poor. 2. Hyperkalemia. Patient has severe hyperkalemia and has as result of severe metabolic acidosis, acute renal failure, and upper GI bleed. He is not likely to improve with Kayexalate. We will try urgent CRRT and try to correct his acidosis and hyperkalemia. CRRT orders are being written. 3. Hyponatremia. This is related to IV fluids given and acute renal failure and hepatic failure. If patient tolerates CRRT, then electrolytes are likely to improve along with hyponatremia. 4. Shock. Patient remains in shock despite massive blood transfusion, IV fluids, and multiple pressors. At present, his prognosis is extremely poor. Thank you for involving me in the care of Mr. Santos. I will follow him along with you.
== END 2018-10-13 05:11 | disposition expired | DRG 368 ==
LOC: M ED 17:06 → EDBD 17:06 → M ED INP 18:43 → M ICU 19:01
PROVIDERS: ADMIT Internal Medicine Pulmonary Disease; ATTEND Internal Medicine Pulmonary Disease
PROC: 0BJ08ZZ Inspection of Tracheobronchial Tree, Via Natural or Artificial Opening Endoscopic (ICD-10-PCS; principal; 2018-10-12)
PROC: 03HC33Z Insertion of Infusion Device into Left Radial Artery, Percutaneous Approach (ICD-10-PCS; 2018-10-12)
PROC: 0W9G3ZZ Drainage of Peritoneal Cavity, Percutaneous Approach (ICD-10-PCS; 2018-10-12)
PROC: 03HY32Z Insertion of Monitoring Device into Upper Artery, Percutaneous Approach (ICD-10-PCS; 2018-10-12)
PROC: 06HN33Z Insertion of Infusion Device into Left Femoral Vein, Percutaneous Approach (ICD-10-PCS; 2018-10-12)
PROC: 0DJ08ZZ Inspection of Upper Intestinal Tract, Via Natural or Artificial Opening Endoscopic (ICD-10-PCS; 2018-10-12)
PROC: 30233N1 Transfusion of Nonautologous Red Blood Cells into Peripheral Vein, Percutaneous Approach (ICD-10-PCS; 2018-10-12)
PROC: 30233K1 Transfusion of Nonautologous Frozen Plasma into Peripheral Vein, Percutaneous Approach (ICD-10-PCS; 2018-10-12)
PROC: 30233R1 Transfusion of Nonautologous Platelets into Peripheral Vein, Percutaneous Approach (ICD-10-PCS; 2018-10-12)
PROC: 30233J1 Transfusion of Nonautologous Serum Albumin into Peripheral Vein, Percutaneous Approach (ICD-10-PCS; 2018-10-12)
PROC: 0BH17EZ Insertion of Endotracheal Airway into Trachea, Via Natural or Artificial Opening (ICD-10-PCS; 2018-10-12)
PROC: 0BC18ZZ Extirpation of Matter from Trachea, Via Natural or Artificial Opening Endoscopic (ICD-10-PCS; 2018-10-12)
PROC: 5A1935Z Respiratory Ventilation, Less than 24 Consecutive Hours (ICD-10-PCS; 2018-10-12)
DX: K22.6 Gastro-esophageal laceration-hemorrhage syndrome (principal); I85.11 Secondary esophageal varices with bleeding; K72.00 Acute and subacute hepatic failure without coma; J96.01 Acute respiratory failure with hypoxia; K65.2 Spontaneous bacterial peritonitis; E87.2 Acidosis; D68.4 Acquired coagulation factor deficiency; N17.9 Acute kidney failure, unspecified; E87.1 Hypo-osmolality and hyponatremia; K70.31 Alcoholic cirrhosis of liver with ascites; F20.9 Schizophrenia, unspecified; K21.9 Gastro-esophageal reflux disease without esophagitis; F17.210 Nicotine dependence, cigarettes, uncomplicated; E87.5 Hyperkalemia; R57.8 Other shock; G25.3 Myoclonus; I46.9 Cardiac arrest, cause unspecified; I10 Essential (primary) hypertension; F42.9 Obsessive-compulsive disorder, unspecified; F10.20 Alcohol dependence, uncomplicated; F43.10 Post-traumatic stress disorder, unspecified; G47.00 Insomnia, unspecified; E78.5 Hyperlipidemia, unspecified; Z79.899 Other long term (current) drug therapy